=== PATIENT | male | born 1980 | race Caucasian/White ===

== ENCOUNTER 2017-11-03 21:14 | Emergency (ER) | payer BC, SELFPAY ==
[2017-11-03 21:16] VITALS: BP 128/75; PULSE 90; RESP 16; TEMP 38.1; O2SAT 96; BMI 26.6
--- NOTE | 2017-11-03 22:22 | ED.DCSUM_ITS ---
- ER Visit Summary Date of Service: 11/03/17 Chief Complaint: [] Cough, fever, scrotal pain History of Present Illness: The patient is a 37 M [] complaining of mild discomfort in his scrotum status post vasectomy 3 days ago. He reports he developed fever and chills and mild cough yesterday and was concerned that these may be related or part of a postoperative complication. He denies any significant discomfort in the scrotal area. Appears slightly anxious. Speaking in full sentences. No other complaints. Physical Examination: [] Febrile 100.6. Remainder of vital signs are unremarkable. 37-year-old male in no acute distress. Cardiovascular exam is regular rate and rhythm. Lungs are clear to auscultation. Abdomen is soft and nontender. There is no lower extremity edema. Examination of the genitourinary area shows appropriately healing post vasectomy incisions without signs of cellulitis, edema, signs of infection. Normal-appearing scrotum, testicles. Normal-appearing penis. Palpation of the scrotal contents reveals normal examination with mild tenderness in the left epididymis. Test Results: [] None. Emergency Department Course and Treatment: [] Patient had a very benign presentation. Had a normally appearing scrotal area. I do not feel that this fever and URI symptoms are related to a postoperative complication. Was encouraged to follow usual precautions and follow-up with his urologist or PCP. Treatment Plan: [] Follow up with urologist. Disposition: [] Discharge, stable. Impression: [] URI Scrotal postoperative pain status post vasectomy This note was generated with [employer] dictation software. It may contain incorrect words, spelling, and punctuation that were not noted in review of the chart prior to signing ED Disposition - Plan for ED Patient: Chief Complaint: Male Pain/Injury Referrals: Ariel Giles MD [Primary Care Provider] -
--- NOTE | 2017-11-03 22:22 | ED.DEP ---
ED Disposition - Plan for ED Patient: Disposition: Home or Assisted Living Chief Complaint: Male Pain/Injury Instructions: Vasectomy: Risks and Complications, ED Viral Syndrome Referrals: Ariel Giles MD [Primary Care Provider] -
[2017-11-03 22:45] VITALS: RESP 16
== END 2017-11-03 22:47 | disposition home or self-care (01) ==
LOC: ED 22:38
PROVIDERS: Emergency Provider Emergency Medicine; Family Provider Family Medicine; PCP Family Medicine
DX: J06.9 Acute upper respiratory infection, unspecified (principal); N50.82 Scrotal pain; G89.18 Other acute postprocedural pain; Z79.899 Other long term (current) drug therapy; Z98.52 Vasectomy status
CPT/HCPCS: 99282

== ENCOUNTER 2021-11-03 09:59 | Outpatient (CLI) | payer BC, SELFPAY ==
[2021-11-03 13:06] LABS: Cholesterol 255 mg/dL (200); High Density Lipoprotein 49 mg/dL; Triglycerides 141 mg/dL; Very Low Density Lipoprotein 28 mg/dL (5-40)
== END 2021-11-03 23:59 | disposition home or self-care (01) ==
LOC: MFPLAB 10:01
PROVIDERS: PCP Family Medicine; Referring Provider Family Medicine; Visit Provider Family Medicine
DX: E78.5 Hyperlipidemia, unspecified (principal)
CPT/HCPCS: 36415; 80061